=== PATIENT | female | born 1995 | race Caucasian/White ===

== ENCOUNTER 2020-08-18 07:58 | Outpatient (CLI) | payer OTHER, SELFPAY ==
--- NOTE | ~2020-08-18 | MR_ITS ---
EXAMINATION: MR brain/brain stem wo con DATE: 08/18/2020 09:[address] TRANSCRIBER INDICATION: Migraine headaches TECHNIQUE: Magnetic resonance imaging (MRI) of the brain and brainstem was performed without intraven ous contrast. Sequences included sagittal and axial T1-weighted SE, axial diffusion-weighted FS SE, a xial T2*-weighted GRE, axial T2-weighted FLAIR Propeller, and axial T2-weighted Propeller. Apparent d iffusion coefficient (ADC) maps were created. COMPARISON: MRI dated 02/12/2019 FINDINGS: The brain volume and ventricular system are within normal limits. The brain parenchymal si gnal intensity pattern and parry/white matter is normal and there is no evidence of hemorrhage, space occupying masses or infarctions. The flow signal voids of the major arterial structures about the [place] and within the gabbi r dural venous sinuses appear grossly unremarkable and patent. The seventh and eighth cranial nerve complexes are normal. The mid sagittal image demonstrates a normal craniovertebral junction and reno us callosum. The paranasal sinuses are grossly unremarkable. No abnormal contrast enhancement was appreciated. IMPRESSION: 1: Unremarkable MRI of the brain. Reviewed, dictated and finalized at location A. T TRANSCRIBER
== END 2020-08-18 07:59 | disposition home or self-care (01) ==
PROVIDERS: PCP Family Medicine
DX: G43.709 Chronic migraine without aura, not intractable, without status migrainosus (principal)
CPT/HCPCS: 70551

== ENCOUNTER 2021-05-02 08:34 | Outpatient (CLI) | payer OTHER, SELFPAY ==
[2021-05-02 09:38] LABS: SARS-CoV-2 RNA PCR Negative (Negative)
== END 2021-05-02 08:35 | disposition home or self-care (01) ==
LOC: CHSLAB 08:36
PROVIDERS: PCP Family Medicine; Visit Provider Family Medicine
DX: J02.9 Acute pharyngitis, unspecified (principal); Z20.822 Contact with and (suspected) exposure to COVID-19
CPT/HCPCS: C9803; U0003; U0005

== ENCOUNTER 2021-08-05 17:43 | Outpatient (CLI) | payer OTHER, SELFPAY ==
[2021-08-05 18:43] LABS: SARS-CoV-2 RNA PCR Negative (Negative)
== END 2021-08-05 17:44 | disposition home or self-care (01) ==
LOC: CHSLAB 17:45
PROVIDERS: PCP Family Medicine; Visit Provider Family Medicine
DX: Z20.822 Contact with and (suspected) exposure to COVID-19 (principal)
CPT/HCPCS: C9803; U0003; U0005

== ENCOUNTER 2021-10-12 11:19 | Outpatient (CLI) | payer OTHER, SELFPAY ==
[2021-10-12 12:05] LABS: Basophils Absolute Auto 0.03 K/mm3 (0.00-0.10); Basophils Percent Auto 0.4 % (0.0-1.0); Eosinophils Absolute Auto 0.07 K/mm3 (0.02-0.50); Eosinophils Percent Auto 0.9 % (1.0-6.0); Hematocrit 46.3 % (35.0-49.0); Hemoglobin 15.2 g/dL (12.0-15.0); Immature Granulocyte Absolute 0.02 K/mm3 (0.00-0.00); Immature Granulocyte Percent A 0.3 % (0.0-0.0); Lymphocytes Absolute Auto 2.25 K/mm3 (1.10-4.50); Lymphocytes Percent Auto 29.5 % (18.0-42.0); Mean Corpuscular HGB Conc 32.8 g/dL (32.0-36.0); Mean Corpuscular Hemoglobin 29.9 pg (27.0-31.0); Mean Corpuscular Volume 91.1 fL (78.0-102.0); Mean Platelet Volume 9.4 fl (9.2-11.8); Monocytes Absolute Auto 0.53 K/mm3 (0.10-0.90); Neutrophils Absolute Auto 4.7 K/mm3 (1.7-7.2); Neutrophils Percent Auto 61.9 % (50.0-70.0); Platelet Count Result 341 K/mm3 (150-420); Red Blood Count 5.08 M/mm3 (4.20-5.40); Red Cell Distribution Width 11.9 % (11.6-14.4); White Blood Count 7.6 K/mm3 (4.8-10.8)
[2021-10-12 12:23] LABS: Hemoglobin A1C 5.6 % (<5.7)
[2021-10-12 12:29] LABS: Alanine Aminotransferase 39 U/L (14-59); Albumin Level 4.2 g/dL (3.4-5.0); Alkaline Phosphatase 70 U/L (46-116); Anion Gap 11 mmol/L (8-16); Aspartate Amino Transferase 20 U/L (15-37); Bilirubin,Total 0.5 mg/dL (0.00-1.00); Blood Urea Nitrogen 20 mg/dL (7-18); Calcium 8.9 mg/dL (8.5-10.1); Carbon Dioxide 27 mmol/L (21-32); Chloride 102 mmol/L (98-108); Cholesterol 198 mg/dL (0-200); Estimated Glomerular Filt Rate > 60; Glucose 93 mg/dL (70-99); HDL Direct 42 mg/dL (40-60); LDL Cholesterol Calculated 137 mg/dL (<130); Osmolality Calculated 292 mOsm/kg (285-295); Sodium 140 mmol/L (136-145); Total Protein 7.2 g/dL (6.4-8.2); Triglycerides 97 mg/dL (0-150)
[2021-10-12 13:09] LABS: Erythrocyte Sedimentation Rate 10 mm/hr (0-15)
== END 2021-10-12 11:20 | disposition home or self-care (01) ==
LOC: CHSLAB 11:22
PROVIDERS: PCP Family Medicine; Visit Provider Family Medicine
DX: Z00.00 Encounter for general adult medical examination without abnormal findings (principal); G44.009 Cluster headache syndrome, unspecified, not intractable
CPT/HCPCS: 36415; 80053; 80061; 83036; 84443; 85025; 85652

== ENCOUNTER 2021-11-05 13:32 | Outpatient (CLI) | payer OTHER, SELFPAY ==
--- NOTE | ~2021-11-05 | US_ITS ---
EXAMINATION: US pelvic complete DATE: 11/05/2021 13:50 INDICATION: Verify IUD placement TECHNIQUE: Multiple transabdominal sonographic images of the pelvis were obtained. COMPARISON: None. FINDINGS: The uterus measures 7.1 x 2.8 x 4.4 cm. The endometrial complex measures 4 mm in thickness. The T-sh aped linear shadowing IUD is seen in expected position within the endometrial canal. The right ovary measures 2.0 x 1.1 x 1.9 cm. The left ovary measures 2.1 x 1.6 x 2.0 cm. There is normal vascular elyse w in the ovaries. There is no free fluid in the pelvis. IMPRESSION: 1. Normal pelvic ultrasound with IUD in expected position. Reviewed, dictated and finalized at location B.
== END 2021-11-05 13:33 | disposition home or self-care (01) ==
LOC: CHSIMG 13:33
PROVIDERS: PCP Family Medicine; Visit Provider Nurse Practitioner
DX: R10.2 Pelvic and perineal pain (principal)
CPT/HCPCS: 76856

== ENCOUNTER 2021-11-22 15:07 | Outpatient (CLI) | payer OTHER, SELFPAY ==
[2021-11-22 15:22] LABS: Basophils Absolute Auto 0.04 K/mm3 (0.00-0.10); Basophils Percent Auto 0.4 % (0.0-1.0); Eosinophils Absolute Auto 0.05 K/mm3 (0.02-0.50); Eosinophils Percent Auto 0.5 % (1.0-6.0); Hematocrit 43.5 % (35.0-49.0); Hemoglobin 14.3 g/dL (12.0-15.0); Immature Granulocyte Absolute 0.04 K/mm3 (0.00-0.00); Immature Granulocyte Percent A 0.4 % (0.0-0.0); Lymphocytes Absolute Auto 2.38 K/mm3 (1.10-4.50); Lymphocytes Percent Auto 24.2 % (18.0-42.0); Mean Corpuscular HGB Conc 32.9 g/dL (32.0-36.0); Mean Corpuscular Hemoglobin 29.7 pg (27.0-31.0); Mean Corpuscular Volume 90.4 fL (78.0-102.0); Mean Platelet Volume 9.4 fl (9.2-11.8); Monocytes Absolute Auto 0.66 K/mm3 (0.10-0.90); Monocytes Percent Auto 6.7 % (2.0-11.0); Neutrophils Absolute Auto 6.7 K/mm3 (1.7-7.2); Neutrophils Percent Auto 67.8 % (50.0-70.0); Platelet Count Result 362 K/mm3 (150-420); Red Blood Count 4.81 M/mm3 (4.20-5.40); Red Cell Distribution Width 11.9 % (11.6-14.4); White Blood Count 9.8 K/mm3 (4.8-10.8)
[2021-11-22 15:57] LABS: Alanine Aminotransferase 32 U/L (14-59); Albumin Level 4.2 g/dL (3.4-5.0); Alkaline Phosphatase 74 U/L (46-116); Anion Gap 6 mmol/L (8-16); Aspartate Amino Transferase 17 U/L (15-37); Bilirubin,Total 0.3 mg/dL (0.00-1.00); Blood Urea Nitrogen 14 mg/dL (7-18); Calcium 9.1 mg/dL (8.5-10.1); Carbon Dioxide 29 mmol/L (21-32); Chloride 105 mmol/L (98-108); Estimated Glomerular Filt Rate > 60; Glucose 95 mg/dL (70-99); Iron 75 ug/dL (50-170); Osmolality Calculated 290 mOsm/kg (285-295); Percent Iron Saturation 25 % (12-57); Potassium 3.8 mmol/L (3.5-5.1); Sodium 140 mmol/L (136-145); Total Protein 7.1 g/dL (6.4-8.2)
== END 2021-11-22 15:08 | disposition home or self-care (01) ==
LOC: CHSLAB 15:10
PROVIDERS: PCP Family Medicine; Visit Provider Nurse Practitioner Gerontology
DX: R71.8 Other abnormality of red blood cells (principal); R79.9 Abnormal finding of blood chemistry, unspecified
CPT/HCPCS: 36415; 80053; 83540; 83550; 85025

== ENCOUNTER 2021-11-24 08:28 | Emergency (ER) | payer OTHER, SELFPAY ==
[2021-11-24 08:40] VITALS: BP 112/75; PULSE 86; RESP 16; TEMP 36.9; O2SAT 99
--- NOTE | 2021-11-24 08:45 | ED.EAR ---
HPI - Ear Problem General Chief complaint: Ear Stated complaint: Ear Problem Time Seen by Provider: 11/24/21 08:45 Source: patient and RN notes reviewed Mode of arrival: ambulatory Limitations: no limitations History of Present Illness HPI Narrative: 26-year-old female presents to concern for earwax impaction. Reports she thinks she pushed wax too far to air when she was cleaning her ear out. She reports erythema in both ear canals. She denies pain, drainage, decreased hearing. MD Complaint: other (Earwax impaction) Related Data Home Medications Medication Instructions Recorded Confirmed levonorgestrel 20 mcg/24 hours (7 1 device INTRAUTERINE ONCE 10/11/21 11/24/21 yrs) 52 mg intrauterine device Allergies Allergy/AdvReac Type Severity Reaction Status Date / Time amoxicillin Allergy Intermediate rash Verified 11/24/21 08:44 Sulfonamides Allergy Intermediate rash Uncoded 11/24/21 08:44 Review of Systems Review of Systems: CONSTITUTIONAL: Denies malaise, chills, sweats, or fever. EYES: Denies visual changes, redness, or discharge. ENT: Denies rhinorrhea, congestion, sinus pain, and sore throat. Reports excess earwax in the right ear CARDIOVASCULAR: Denies chest pain, palpitations, or edema. RESPIRATORY: Denies cough. Denies dyspnea. GASTROINTESTINAL: Denies abdominal pain, nausea, vomiting, diarrhea SKIN: Denies rash or itching. MUSCULOSKELETAL: Denies myalgia. NEUROLOGIC: Denies headache. All systems reviewed & are unremarkable except as noted in HPI and below PMFSH Past Medical History Medical History Chronic migraine Surgical History Surgical History [place] teeth extracted Family History Family History Father Hypertension Hyperlipidemia Grandparent Cancer Grandparent Diabetes mellitus Social History Social History Social History: Single Smoking status: Never smoker Second hand tobacco smoke exposure: No Alcohol intake: current Drinks per week: 2 Substance use: never Substance use type: does not use Gender identity (if verbalized by the patient): Female Comments At time of signature, agree with nursing past medical, surgical, social and family history. There is no relevant family history pertinent to the presenting complaint Exam Narrative: GENERAL: Well-appearing, well-nourished, and in no acute distress. HEAD: Normocephalic EYES: PERRLA, conjunctivae clear ENT: Nares clear. Mucous membranes moist. Left TM pearly parry with sharp light reflex, right TM not visible due to cerumen impaction; no tragal tenderness, EAC unremarkable bilaterally. Oropharynx not erythematous without lesions. Tonsils not enlarged and without exudate, no drooling, no hoarseness, no trismus, uvula midline. NECK: Supple. No lymphadenopathy CHEST: Clear to auscultation, breath sounds equal. No wheezing, rhonchi, rales, or stridor. No respiratory distress, speaks in full sentences. HEART: Regular rate and rhythm. No murmur heard. SKIN: Warm, dry, no rash. NEURO: Alert and oriented x3. PSYCH: Normal mood and affect Course Course Emergency Course: Patient is aware of diagnosis, understands and agrees to treatment plan. Anticipatory guidance given. Patient agrees to follow-up as directed and is aware of reasons to seek care at the emergency department. Portions of this record may have been created with voice recognition software Level of Care: Express Care Visit Vital Signs Vital signs: Vital Signs Temperature 98.5 F 11/24/21 08:40 Pulse Rate 86 11/24/21 08:40 Respiratory Rate 16 11/24/21 08:40 Blood Pressure 112/75 11/24/21 08:40 Pulse Oximetry 99 11/24/21 08:40 Temperature 98.5 F 11/24/21 08:40 Pulse Rate 86 11/24/21 08:40
== END 2021-11-24 09:15 | disposition home or self-care (01) ==
PROVIDERS: Emergency Provider Nurse Practitioner; PCP Family Medicine
DX: H61.21 Impacted cerumen, right ear (principal)
CPT/HCPCS: 69209; 99212; G0463

== ENCOUNTER 2022-01-23 14:14 | Outpatient (CLI) | payer OTHER, SELFPAY ==
--- NOTE | ~2022-01-23 | XR_ITS ---
EXAMINATION: XR abdomen obstructive series DATE: 01/23/2022 14:55 INDICATION: Abdominal distention, right lower quadrant pain TECHNIQUE: Upright and supine views of the abdomen were obtained. COMPARISON: None. FINDINGS: The bowel gas pattern is normal. There are no dilated loops of bowel. No free intraperitone al gas is identified. An IUD is noted. The visualized osseous structures are unremarkable. IMPRESSION: 1. Nonobstructive bowel gas pattern. Reviewed, dictated and finalized at location F.
== END 2022-01-23 14:15 | disposition home or self-care (01) ==
LOC: CHSIMG 14:17
PROVIDERS: PCP Family Medicine; Visit Provider Family Medicine
DX: R14.0 Abdominal distension (gaseous) (principal); E04.9 Nontoxic goiter, unspecified
CPT/HCPCS: 74019

== ENCOUNTER 2022-01-29 13:45 | Outpatient (CLI) | payer OTHER, SELFPAY ==
--- NOTE | ~2022-01-29 | US_ITS ---
EXAMINATION: US thyroid DATE: 01/29/2022 14:06 INDICATION: Enlarged thyroid TECHNIQUE: Multiple ultrasound images of the thyroid were obtained. COMPARISON: None. FINDINGS: The right thyroid lobe measures 1.2 x 4.9 x 1.4 cm. The left thyroid lobe measures 1.0 x 4.4 x 1.3 c m. The thyroid isthmus measures 0.2 cm.There is normal echotexture and echogenicity throughout the th yroid gland. No discrete nodules identified. Normal vascular flow is present. IMPRESSION: 1. Normal thyroid ultrasound findings. Reviewed, dictated and finalized at location K.
== END 2022-01-29 13:46 | disposition home or self-care (01) ==
LOC: CHSIMG 13:47
PROVIDERS: PCP Family Medicine; Visit Provider Family Medicine
DX: E04.9 Nontoxic goiter, unspecified (principal)
CPT/HCPCS: 76536

== ENCOUNTER 2023-05-12 16:06 | Outpatient (CLI) | payer BC, SELFPAY ==
[2023-05-12 16:25] LABS: Basophils Percent Auto 0.5 % (0.0-1.0); Eosinophils Absolute Auto 0.06 K/mm3 (0.02-0.50); Eosinophils Percent Auto 0.6 % (1.0-6.0); Hematocrit 41.8 % (35.0-49.0); Hemoglobin 14.1 g/dL (12.0-15.0); Immature Granulocyte Absolute 0.02 K/mm3 (0.00-0.00); Immature Granulocyte Percent A 0.2 % (0.0-0.0); Lymphocytes Percent Auto 25.6 % (18.0-42.0); Mean Corpuscular HGB Conc 33.7 g/dL (32.0-36.0); Mean Corpuscular Hemoglobin 30.3 pg (27.0-31.0); Mean Corpuscular Volume 89.9 fL (78.0-102.0); Mean Platelet Volume 9.1 fl (9.2-11.8); Monocytes Percent Auto 6.4 % (2.0-11.0); Neutrophils Absolute Auto 6.2 K/mm3 (1.7-7.2); Neutrophils Percent Auto 66.7 % (50.0-70.0); Platelet Count Result 381 K/mm3 (150-420); Red Blood Count 4.65 M/mm3 (4.20-5.40); Red Cell Distribution Width 12.2 % (11.6-14.4); White Blood Count 9.4 K/mm3 (4.8-10.8)
[2023-05-12 16:26] LABS: Basophils Absolute Auto 0.05 K/mm3 (0.00-0.10)
[2023-05-12 16:48] LABS: Alanine Aminotransferase 40 U/L (14-59); Albumin Level 3.9 g/dL (3.4-5.0); Alkaline Phosphatase 78 U/L (46-116); Anion Gap 10 mmol/L (8-16); Aspartate Amino Transferase 17 U/L (15-37); Bilirubin,Total 0.3 mg/dL (0.00-1.00); Blood Urea Nitrogen 16 mg/dL (7-18); Calcium 9.2 mg/dL (8.5-10.1); Carbon Dioxide 28 mmol/L (21-32); Chloride 102 mmol/L (98-108); Estimated Glomerular Filt Rate > 60; Glucose 94 mg/dL (70-99); Osmolality Calculated 291 mOsm/kg (285-295); Sodium 140 mmol/L (136-145); Total Protein 6.8 g/dL (6.4-8.2)
== END 2023-05-12 16:07 | disposition home or self-care (01) ==
LOC: CHSLAB 16:08
PROVIDERS: PCP Family Medicine; Visit Provider Physician Assistant
DX: R00.2 Palpitations (principal); R42 Dizziness and giddiness
CPT/HCPCS: 36415; 80053; 84443; 85025

== ENCOUNTER 2025-01-09 08:39 | Emergency (ER) | payer OTHER, BC, SELFPAY ==
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
[2025-01-09 08:43] VITALS: BP 138/77; PULSE 98; RESP 16; O2SAT 100
--- OUTSIDE RECORDS SUMMARY | 2025-01-09 08:58 | XMS_ITS | Clinical Summary ---
Author Organization [facility] Address [address] [place] [address] Phone Care Team Providers Care Food Supervisor Name Role Phone Alley Pickard MD Primary Care Provider [phone] Allergies Active Allergy Reactions Criticality Noted Date Comments Amoxicillin Rash 08/12/2006 Sulfa Antibiotics Rash 07/25/2024 Medications Aimovig 70 MG/ML Solution Auto-injector ADMINISTER 1ML IN THE MUSCLE MONTHLY Active Active Problems No known active problems Social History Tobacco Use Types Packs/Day Years Used Date Smoking Tobacco: Never Smokeless Tobacco: Never Comments No Sex and Gender Information Value Date Recorded Sex Assigned at Not on file Legal Sex Female 10:39 PM CDT Gender Identity Not on file Sexual Orientation Not on file Last Filed Vital Signs Vital Sign Reading Time Taken Comments Blood Pressure 120/68 07/25/2024 5:26 PM ROUND KILN DRAWER Pulse 116 07/25/2024 5:26 PM ROUND KILN DRAWER Temperature 36.6 C (97.8 F) 07/25/2024 5:26 PM ROUND KILN DRAWER Respiratory Rate 24 07/25/2024 5:26 PM ROUND KILN DRAWER Oxygen Saturation 96% 07/25/2024 5:26 PM ROUND KILN DRAWER Inhaled Oxygen Concentration - - Weight - - Height - - Body Mass Index - - Plan of Treatment Health Maintenance Due Date Last Done Comments Hepatitis C Virus (HCV) Screening 1995 Hepatitis B Immunization (1 of 3 - 19+ 3-dose series) 2014 Pap Smear 2016 SARS-COV-2 Immunization ( season) 2024 06/14/2021, 08/27/2020, 07/30/2020 Influenza Immunization (Seas on Ended) 2025 Respiratory Syncytial Virus (RSV) Immunization (Adult) (1 - 1-dose 75+ series) 2070 TdaP Immunization Completed 10/07/2017 Human Papillomavirus (HPV) Immunization Aged Out No longer eligible b ased on patient's age to complete this topic Meningococcal Immunization (ACWY) Aged Out No longer eligible b ased on patient's age to complete this topic Pneumococcal Immunization Combined Aged Out No longer eligible b ased on patient's age to complete this topic Rotavirus Immunization Aged Out No lo nger eligible based on patient's age to complete this topic Insurance [facility] Member Subscriber Plan / Payer (Ef fective 2023-Present) Name:Anna Ortega Member ID:[id number] Relation to Subscriber:Self Name:Anna Ortega Subscriber ID:[id number] Payer ID:[id number] Type:Not on file Address: [facility] [address] [place] [address] Care Teams Food Supervisor Relationship Specialty Start Date End Date Alley Pickard MD [address] [facility] [address] [place] [address] PCP - General Family Medicine 07/25/24
--- OUTSIDE RECORDS SUMMARY | 2025-01-09 08:59 | XMS_ITS | Data Portability ---
Author Organization [facility], [address] [facility] [facility] Address [address] [place] [address] Care Team Providers Care Electronics Engineering Technologist Name Role Phone ABHILASH BLANK Primary Care Provider Assessment Encounter Date Assessment Date Assessment LastModified by Organization Details LastModified Time 2024 2024 Anna's migraines have worsened. She is having a daily migraine. Different treatment options were discussed with her. We will try stopping the Emgality and switching her to Aimovig. She can continue the Nurtec as needed. All questions and concerns were answered. Follow-up in 3 months, sooner if needed. She verbalized understanding and agreement with the treatment plan. [email or web address] Not available 2024 12:45:09 Plan of Treatment Reminders Order Date Submit Date Provider Last Modified By Organization Details Last Modified Time Details Appointments None recorded. Lab None recorded. Referral None recorded. Procedures None recorded. Surgeries None recorded. Imaging None recorded. Medication Orders Aimovig Autoinjecto r 70 mg/mL subcutaneou s auto-inject or 2023 [facility] #[id number], [address] [place] [address], [phone], 11:41:37 Nurtec ODT 75 mg disintegrat ing tablet 2023 [facility] #[id number], [address] [place] [address], [phone], 11:41:37 Patient TargetsNo targets recorded. Patient InstructionsNo instructions recorded. Reason for Referral None Reported. Problems Name Problem SNOMED Code Status Onset Date Resolution Date Notes Provider Name and Address Organization Details Recorded Time Migraine without aura, not refractory 540381800 Active 024 Josette Cruz Pelc, SPACE SYSTEMS OPERATIONS MANAGER, MARKETING RESEARCHER [address] [place] [address], [phone] [facility] 4 11:40:09 Problem Notes None recorded. Procedures Surgical History Date Name Laterality Status Provider Name and Address Organization Details Recorded Time Create eardrum opening completed Not Available Health Note 06/09/2024 14:46:05 Imaging Results None recorded. Procedure Notes None recorded. Medical Equipment None Reported. Allergies Allergen ID Allergen Name Allergen Category Reaction Reaction Severity Criticality Documentation Date Start Date Code Code System Note Provider Name and Address Organization Details Recorded Time 669537 amoxicill in trihydrat e medicatio n rash Not available Not available 08/31/20232006 88782 8 RxNorm React ion: Rash; Not Available [facility] 4 23:36:14 [id number] Substance with sulfonami de structure and antibacte rial mechanism of action (substanc e) medicatio n rash Not available Not available 08/31/20232012 53662 8003 SNOMED React ion: Rash; Not Available [facility] 4 23:36:14 Medications Name Sig Start Date Stop Date Status Note LastModified by Organization Details LastModified Time Aimovig Autoinjecto r 70 mg/mL subcutaneou s auto-inject or INJECT 1ML UNDER THE SKIN ONCE MONTHLY 2024 active Not Available Not Available Not Avai lable Emgality Pen 120 mg/mL subcutaneou s pen injector ADMINISTE R 1 ML UNDER THE SKIN MONTHLY 06/16 completed Not Available Not Available Not Available Nurtec ODT 75 mg disintegrat ing tablet active Not Available Not Available N ot Available Vitals Date Recorded Heart rate Oxygen saturation Oxygen saturation in Arterial blood by Pulse oximetry Body weight Systolic blood pressure Diastolic blood pressure Provider Name and Address Organization Details Last Updated DateTime 4 125 /min 97 % 97 % 062638. 59 g 124 mm[Hg] 80 mm[Hg] Johnny Sosa [facility] 11:27:52 Social History Question Answer Notes LastModified by Organizat ion Details LastModified Time Tobacco Smoking Status Former Smoker Not Available Health Note 06/09/2024 14:46:06 Do You Have An Advance Directive? No [email or web address] Information not available 06/09/2024 What Is Your Level Of Caffeine Consumption? Moderate [email or web address] Information not available 06/09/2024 How Many Times Per Week Do You Exercise? 5-7 Times Per Week [email or web address] Information not available 06/09/2024 When Did You Quit Smoking? 5+ Yrs Ago [email or web address] Information not available 06/09/2024 What Was The Date Of Your Most Recent Tobacco Screening? 2024 [email or web address] Information not available 06/09/2024 What Is Your Relationship Status? Single [email or web address] Information not available 06/09/2024 Sex: Unknown Functional Status Question Answer Note LastModified by Organizat ion Details LastModified Time How many times per week do you consume alcohol? Less than 1 time per week [email or web address] Information not available 06/09/2024 Do you use any illicit or recreational drugs? No [email or web address] Information not available 06/09/2024 What is your level of alcohol consumption? Occasional [email or web address] Information not available 06/09/2024 Are you currently employed? 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 Moderate [email or web address] Information not available 06/09/2024 Mental Status None recorded. Family History Relationship Description Onset Age of this Age Resolved Age Notes LastModified by Organization Details LastModified Time Maternal Grandfather Family history of malignant neoplasm [email or web address] Not available 2023 14:46:04 Maternal Grandfather Diabetes mellitus [email or web address] Not available 2023 14:46:04 Paternal Grandfather Family history of malignant neoplasm [email or web address] Not available 2023 14:46:04 Paternal Grandmother Diabetes mellitus [email or web address] Not available 2023 14:46:04 Father Hypertensive disorder [email or web address] Not available 2023 14:46:04 Father Demarco horton [email or web address] Not available 2023 14:46:04 Medical History Condition Response Diabetes N Anxiety Disorder N Bleeding Disorder N Attention-deficit Hyperactivity Disorder N High Blood Pressure N Arthritis N Hyperlipidemia N Cancer N Stroke N Thyroid Problems N Asthma N Depression N COPD N Anemia N Seizures N Heart Disease N Fibromyalgia N Osteoporosis N Kidney Disease N Gynecological HistoryNo gynecological history recorded. Obstetrics History GPAL:G 0 P 0 0 0 0 Past Encounters Encounter ID Performer Location Encounter Start Date Encounter Closed Date Diagnosis/Indication Diagnosis SNOMED-CT Code Diagnosis ICD10 Code Diagnosis Note [id number] Josette Williamc, SPACE SYSTEMS OPERATIONS MANAGER, MARKETING RESEARCHER [address] [facility] [address] [place] [address] 2024 10:48:28 2024 11:45:46 Migraine without aura, not refractory 948188362 G43.709 Health Concerns Section Related Observation LastModified by Organization Detai ls LastModified Time None Recorded Concern Status LastModified by Organization Details LastModified Time None Recorded Advance Directives Directive N: Payers Insurance Date Sequence Insurance Name Policy Number Policy Tyson Covered Member ID Tyson Member ID Guarantor Name 2024 1 [employer] (PPO) [id number] Anna Ortega [id number] Anna Ortega 2024 1 [facility] (O) [id number] 1 Anna Ortega [id number] Anna Ortega Notes Date Note Type Note Provider Name and Address Organization Details Recorded Time 2024 text/html Anna is here today for follow-up. She has a history of migraine headaches and is currently on Emgality injections once a month as well as Nurtec as needed. She denies side effects to her medications.She states that the Emgality was working quite well for her up until just a few months ago. For the last 4 months she has been having almost daily migraines. She reports a throbbing pain across her forehead and behind her eyes. She reports minimal nausea but typically no vomiting. She is photophobic and photophobic. When she gets a migraine she will take Nurtec which is usually quite helpful at taking the edge off the pain.In addition to the Emgality, in the past she has tried amitriptyline, topiramate, propranolol, citalopram. She is tried rizatriptan and sumatriptan and Ubrelvy. Josette Gaming, SPACE SYSTEMS OPERATIONS MANAGER, MARKETING RESEARCHER [address] [place] [address], [phone], [facility] 2024 12:45:30 OBGyn Episode No OBEpisode recorded.
--- OUTSIDE RECORDS SUMMARY | 2025-01-09 08:59 | XMS_ITS | Data Portability ---
Author Organization [facility] Address [address] [place] [address] Care Team Providers Care Community Health Educator Name Role Phone THADDEUSCALINRAMILA ApodacaI Warp Clamper Assessment No assessment recorded. Plan of Treatment Reminders Order Date Submit Date Provider Last Modified By Organization Details Last Modified Time Details Appointments None recorded. Lab HSV (1+2) DNA, qual, PCR, unspecifie d specimen 2017 018 [facility], [address], [place], [address], 8 16:16:42 bacterial vaginosis + vaginitis panel, vaginal 2017 018 [facility], [address], [place], [address], 8 16:16:41 pap, IG + HPV, cervical 2017 018 [facility], [address], [place], [address], 8 11:35:57 urinalysis , dipstick 2017 018 [email or web address] In-Office Order, Internal Use Only DO Not Attach Compendium DO Not Attach Compendium, Do Not Delete/merge, [id number] 8 17:32:24 test, urine 2017 018 [email or web address] In-Office Order, Internal Use Only DO Not Attach Compendium DO Not Attach Compendium, Do Not Delete/merge, [id number] 8 17:32:24 test, urine 2015 016 [email or web address] In-Office Order, Internal Use Only DO Not Attach Compendium DO Not Attach Compendium, Do Not Delete/merge, [id number] 6 17:01:17 urinalysis , dipstick 2015 016 [email or web address] In-Office Order, Internal Use Only DO Not Attach Compendium DO Not Attach Compendium, Do Not Delete/merge, [id number] 6 17:01:17 test, urine 2015 016 [email or web address] In-Office Order, Internal Use Only DO Not Attach Compendium DO Not Attach Compendium, Do Not Delete/merge, [id number] 6 11:29:59 urinalysis , dipstick 2015 016 [email or web address] In-Office Order, Internal Use Only DO Not Attach Compendium DO Not Attach Compendium, Do Not Delete/merge, [id number] 6 16:58:47 test, urine 2015 016 [email or web address] In-Office Order, Internal Use Only DO Not Attach Compendium DO Not Attach Compendium, Do Not Delete/merge, [id number] 6 16:58:47 bacterial vaginosis + vaginitis panel, vaginal 2015 016 [facility], [address] [place] [address], [address], [place], [address], 6 16:17:20 HSV (1+2) DNA, qual, PCR, unspecifie d specimen 2015 016 [facility], [address] [facility], [address], [place], [address], 6 16:17:20 Referral None recorded. Procedures None recorded. Surgeries None recorded. Imaging None recorded. Medication Orders Vitamin tablet 2017 018 [email or web address] [facility], [address] [place] [address], [address], 8 17:40:09 Mirena 21 mcg/24 hr (up to 8 years) 52 mg intrauteri ne device 2015 016 [email or web address] Not available 8 17:04:09 Mirena 21 mcg/24 hr (up to 8 years) 52 mg intrauteri ne device 2015 016 [email or web address] [facility], [address] [place] [address], [address], 8 17:03:52 Patient TargetsNo targets recorded. Patient Instructions Encounter Date Encounter Id Patient Instructions Last Modified By Organization Details Last Modified Time 10/30/2017 When You Want to Lose Weight: Care Instructions [email or web address] Not available 10/30/2017 17:27:58 Well Visit, Ages 18 to 65: Care Instructions [email or web address] Not available 10/30/2017 17:27:25 Reason for Referral None Reported. Results Created Date Observation Date Name Description Value Unit Range Abnormal Flag Note LastModifiedBy Organization Detail LastModifiedTime 10/31/19 18 10/30/2017 pregn sugey test, urine HCG negati ve Not Available In-Office Order Internal Use Only DO Not Attach Compendium DO Not Attach Compendium, Do Not Delete/merge, [id number] 10/30/2017 17:06:43 10/31/19 18 10/30/2017 urina lysis , dipst ick Leukocytes Trace Not Available In-Offi ce Order Internal Use Only DO Not Attach Compendium DO Not Attach Compendium, Do Not Delete/merge, [id number] 10/30/2017 17:06:42 10/31/19 18 10/30/2017 urina lysis , dipst ick Nitrite negati ve Not Available In-Office Order Internal Use Only DO Not Attach Compendium DO Not Attach Compendium, Do Not Delete/merge, [id number] 10/30/2017 17:06:42 10/31/19 18 10/30/2017 urina lysis , dipst ick Urobilinogen 1 Not Available In-Of fice Order Internal Use Only DO Not Attach Compendium DO Not Attach Compendium, Do Not Delete/merge, 10/30/2017 17:06:42 10/31/19 18 10/30/2017 urina lysis , dipst ick Protein Negati ve Not Available In-Office Order Internal Use Only DO Not Attach Compendium DO Not Attach Compendium, Do Not Delete/merge, 10/30/2017 17:06:42 10/31/19 18 10/30/2017 urina lysis , dipst ick pH 8.0 Not Available In-Office Order Internal Use Only DO Not Attach Compendium DO Not Attach Compendium, Do Not Delete/merge, 10/30/2017 17:06:42 10/31/19 18 10/30/2017 urina lysis , dipst ick Blood Non-He molyze d: Trace Not Available In-Office Order Internal Use Only DO Not Attach Compendium DO Not Attach Compendium, Do Not Delete/merge, 10/30/2017 17:06:42 10/31/19 18 10/30/2017 urina lysis , dipst ick Specific Walcott 1.015 Not Available In-Off ice Order Internal Use Only DO Not Attach Compendium DO Not Attach Compendium, Do Not Delete/merge, 10/30/2017 17:06:42 10/31/19 18 10/30/2017 urina lysis , dipst ick Ketone Negati ve Not Available In-Office Order Internal Use Only DO Not Attach Compendium DO Not Attach Compendium, Do Not Delete/merge, 10/30/2017 17:06:42 10/31/19 18 10/30/2017 urina lysis , dipst ick Bilirubin Negati ve Not Available In-Office Order Internal Use Only DO Not Attach Compendium DO Not Attach Compendium, Do Not Delete/merge, 10/30/2017 17:06:42 10/31/19 18 10/30/2017 urina lysis , dipst ick Glucose Negati ve Not Available In-Office Order Internal Use Only DO Not Attach Compendium DO Not Attach Compendium, Do Not Delete/merge, [id number] 10/30/2017 17:06:42 04/14/20 16 04/14/2016 urina lysis , dipst ick Leukocytes Negati ve Not Available In-Office Order Internal Use Only DO Not Attach Compendium DO Not Attach Compendium, Do Not Delete/merge, 04/14/2016 16:37:22 04/14/20 16 04/14/2016 urina lysis , dipst ick Nitrite negati ve Not Available In-Office Order Internal Use Only DO Not Attach Compendium DO Not Attach Compendium, Do Not Delete/merge, 04/14/2016 16:37:22 04/14/20 16 04/14/2016 urina lysis , dipst ick Urobilinogen 1 Not Available In-Of fice Order Internal Use Only DO Not Attach Compendium DO Not Attach Compendium, Do Not Delete/merge, 04/14/2016 16:37:22 04/14/2004/14/2016 urina lysis , dipst ick Protein Negati ve Not Available In-Office Order Internal Use Only DO Not Attach Compendium DO Not Attach Compendium, Do Not Delete/merge, 04/14/2016 16:37:22 04/14/2004/14/2016 urina lysis , dipst ick pH 5.5 Not Available In-Office Order Internal Use Only DO Not Attach Compendium DO Not Attach Compendium, Do Not Delete/merge, 04/14/2016 16:37:22 04/14/2004/14/2016 urina lysis , dipst ick Blood Modera te Not Available In-Office Order Internal Use Only DO Not Attach Compendium DO Not Attach Compendium, Do Not Delete/merge, 04/14/2016 16:37:22 04/14/2004/14/2016 urina lysis , dipst ick Specific Walcott 1.030 Not Available In-Off ice Order Internal Use Only DO Not Attach Compendium DO Not Attach Compendium, Do Not Delete/merge, 04/14/2016 16:37:22 04/14/2004/14/2016 urina lysis , dipst ick Ketone Negati ve Not Available In-Office Order Internal Use Only DO Not Attach Compendium DO Not Attach Compendium, Do Not Delete/merge, [id number] 04/14/2016 16:37:22 04/14/20 16 04/14/2016 urina lysis , dipst ick Bilirubin Negati ve Not Available In-Office Order Internal Use Only DO Not Attach Compendium DO Not Attach Compendium, Do Not Delete/merge, [id number] 04/14/2016 16:37:22 04/14/20 16 04/14/2016 urina lysis , dipst ick Glucose Negati ve Not Available In-Office Order Internal Use Only DO Not Attach Compendium DO Not Attach Compendium, Do Not Delete/merge, 04/14/2016 16:37:22 04/14/20 16 04/14/2016 pregn sugey test, urine HCG negati ve Not Available In-Office Order Internal Use Only DO Not Attach Compendium DO Not Attach Compendium, Do Not Delete/merge, 04/14/2016 16:37:21 03/18/20 16 03/18/2016 pregn sugey test, urine HCG negati ve Not Available In-Office Order Internal Use Only DO Not Attach Compendium DO Not Attach Compendium, Do Not Delete/merge, 03/18/2016 15:08:57 01/18/20 16 01/18/2016 pregn sugey test, urine HCG negati ve Not Available In-Office Order Internal Use Only DO Not Attach Compendium DO Not Attach Compendium, Do Not Delete/merge, 01/18/2016 14:55:11 01/18/20 16 01/18/2016 urina lysis , dipst ick Leukocytes Negati ve Not Available In-Office Order Internal Use Only DO Not Attach Compendium DO Not Attach Compendium, Do Not Delete/merge, 01/18/2016 14:55:11 01/18/20 16 01/18/2016 urina lysis , dipst ick Nitrite negati ve Not Available In-Office Order Internal Use Only DO Not Attach Compendium DO Not Attach Compendium, Do Not Delete/merge, [id number] 01/18/2016 14:55:11 01/18/20 16 01/18/2016 urina lysis , dipst ick Urobilinogen .2 Not Available In-Of fice Order Internal Use Only DO Not Attach Compendium DO Not Attach Compendium, Do Not Delete/merge, 01/18/2016 14:55:01/18/20 16 01/18/2016 urina lysis , dipst ick Protein Trace Not Available In-Office Order Internal Use Only DO Not Attach Compendium DO Not Attach Compendium, Do Not Delete/merge, 01/18/2016 14:55:01/18/20 16 01/18/2016 urina lysis , dipst ick pH 7.0 Not Available In-Office Order Internal Use Only DO Not Attach Compendium DO Not Attach Compendium, Do Not Delete/merge, 01/18/2016 14:55:01/18/20 16 01/18/2016 urina lysis , dipst ick Blood Negati ve Not Available In-Office Order Internal Use Only DO Not Attach Compendium DO Not Attach Compendium, Do Not Delete/merge, 01/18/2016 14:55:01/18/20 16 01/18/2016 urina lysis , dipst ick Specific Walcott 1.025 Not Available In-Off ice Order Internal Use Only DO Not Attach Compendium DO Not Attach Compendium, Do Not Delete/merge, 01/18/2016 14:55:01/18/20 16 01/18/2016 urina lysis , dipst ick Ketone Negati ve Not Available In-Office Order Internal Use Only DO Not Attach Compendium DO Not Attach Compendium, Do Not Delete/merge, 01/18/2016 14:55:01/18/20 16 01/18/2016 urina lysis , dipst ick Bilirubin Negati ve Not Available In-Office Order Internal Use Only DO Not Attach Compendium DO Not Attach Compendium, Do Not Delete/merge, 01/18/2016 14:55:01/18/2001/18/2016 urina lysis , dipst ick Glucose Negati ve Not Available In-Office Order Internal Use Only DO Not Attach Compendium DO Not Attach Compendium, Do Not Delete/merge, 01/18/2016 14:55:01/18/2001/20/2016 bacte rial vagin osis + vagin itis panel , vagin al trich vag by MANNY NEGATI VE negati ve Not Available [facility] ([facility]) [address] [place], [address], 01/22/2016 16:17:19 01/18/20 16 01/20/2016 bacte rial vagin osis + vagin itis panel , vagin al chlamydia trachomatis, MANNY NEGATI VE negati ve Not Available [facility] ([facility]) [address] [place], [address], 01/22/2016 16:17:19 01/18/20 16 01/20/2016 bacte rial vagin osis + vagin itis panel , vagin al neisseria gonorrhoeae, MANNY NEGATI VE negati ve Not Available [facility] ([facility]) [address] [place], [address], 01/22/2016 16:17:19 01/18/20 16 01/22/2016 bacte rial vagin osis + vagin itis panel , vagin al atopobium vaginae LOW - 0 score Not Available [facility] ([facility]) [address] [place], [address], 01/22/2016 16:17:19 01/18/20 16 01/22/2016 bacte rial vagin osis + vagin itis panel , vagin al bvab 2 LOW - 0 score Not Available [facility] ([facility]) [address] [place], [address], 01/22/2016 16:17:19 01/18/20 16 01/22/2016 bacte rial vagin osis + vagin itis panel , vagin al megasphaera 1 LOW - 0 score CALCU LATE TOTAL SCORE BY VANIA Whitman THE 3 INDIV IDUAL BACTE RIAL VAGIN OSIS (BV) MARKE R SCORE S TOGET HER. TOTAL SCORE IS INTER PRETE D FOLLO WS: TOTAL SCORE 0-1: INDIC ATES THE ABSEN CE OF BV. TOTAL SCORE 2: INDET ERMIN ATE FOR BV. ADDIT IONAL CLINI GRACE DATA SHOUL D BE EVALU ATED TO ESTAB ONEL A DIAGN OSIS. TOTAL SCORE 3-6: INDIC ATES THE PRESE NCE OF BV. THIS TEST WAS DEVEL OPED AND ITS PERFO RMANC E NOMAN CTERI STICS DETER MINED BY [employer] [facility]. IT HAS NOT BEEN CLEAR ED OR APPRO CARLOS ENRIQUE BY THE FOOD AND DRUG ADMIN ISTRA TION. THE FDA HAS DETER MINED THAT SUCH CLEAR ANCE OR APPRO SILKE IS NOT NECES DEEPA. Not Available [facility] ([facility]) [address] [place], [address], 01/22/2016 16:17:19 01/18/20 16 01/22/2016 bacte rial vagin osis + vagin itis panel , vagin al grayson albicans, MANNY NEGATI VE negati ve Not Available [facility] ([facility]) [address] [place], [address], 01/22/2016 16:17:19 01/18/20 16 01/22/2016 bacte rial vagin osis + vagin itis panel , vagin al grayson glabrata, MANNY NEGATI VE negati ve THIS TEST WAS DEVEL OPED AND ITS PERFO RMANC E NOMAN CTERI STICS DETER MINED BY [facility]. IT HAS NOT BEEN CLEAR ED OR APPRO CARLOS ENRIQUE BY THE FOOD AND DRUG ADMIN ISTRA TION. THE FDA HAS DETER MINED THAT SUCH CLEAR ANCE OR APPRO SILKE IS NOT NECES DEEPA. Not Available [facility] ([facility]) [address] [place], [address], 01/22/2016 16:17:19 01/18/20 16 01/22/2016 HSV (1+2) DNA, qual, PCR, unspe cifie d speci men hsv 1 MANNY NEGATI VE negati ve Not Available [facility] ([facility]) [address] [place], [address], 01/22/2016 16:17:20 01/18/20 16 01/22/2016 HSV (1+2) DNA, qual, PCR, unspe cifie d speci men hsv 2 MANNY NEGATI VE negati ve Not Available [facility] ([facility]) [address] [place], [address], 01/22/2016 16:17:20 10/31/19 18 11/01/2017 bacte rial vagin osis + vagin itis panel , vagin al trich vag by MANNY Negati ve negati ve Not Available [facility] ([facility]) [address] [place], [address], 11/03/2017 16:16:41 10/31/19 18 11/02/2017 bacte rial vagin osis + vagin itis panel , vagin al chlamydia trachomatis, MANNY Negati ve negati ve Not Available [facility] ([facility]) [address] [place], [address], 11/03/2017 16:16:41 10/31/19 18 11/02/2017 bacte rial vagin osis + vagin itis panel , vagin al neisseria gonorrhoeae, MANNY Negati ve negati ve Not Available [facility] ([facility]) [address] [place], [address], 11/03/2017 16:16:41 10/31/19 18 11/03/2017 bacte rial vagin osis + vagin itis panel , vagin al atopobium vaginae Low - 0 score Not Available [facility] ([facility]) [address] [place], [address], 11/03/2017 16:16:41 10/31/19 18 11/03/2017 bacte rial vagin osis + vagin itis panel , vagin al bvab 2 Low - 0 score Not Available [facility] ([facility]) [address] [place], [address], 11/03/2017 16:16:41 10/31/19 18 11/03/2017 bacte rial vagin osis + vagin itis panel , vagin al megasphaera 1 Low - 0 score Calcu late total score by vania whitman the 3 indiv idual bacte rial vagin osis (BV) marke r score s toget her. Total score is inter prete d as follo ws: Total score 0-1: Indic ates the absen ce of BV. Total score 2: Indet ermin ate for BV. Addit ional clini grace data shoul d be evalu ated to estab onel a diagn osis. Total score 3-6: Indic ates the prese nce of BV. This test was devel oped and its perfo rmanc e noman cteri stics deter mined by [employer]. It has not been clear ed or appro carlos enrique by the Food and Drug Admin istra tion. The FDA has deter mined that such clear ance or appro silke is not neces deepa. Not Available [facility] ([facility]) [address] [place], [address], 11/03/2017 16:16:41 10/31/19 18 11/03/2017 bacte rial vagin osis + vagin itis panel , vagin al grayson albicans, MANNY Negati ve negati ve Not Available [facility] ([facility]) [address] [place], [address], 11/03/2017 16:16:41 10/31/19 18 11/03/2017 bacte rial vagin osis + vagin itis panel , vagin al grayson glabrata, MANNY Negati ve negati ve This test was devel oped and its perfo rmanc e noman cteri stics deter mined by [employer]. It has not been clear ed or appro carlos enrique by the Food and Drug Admin istra tion. The FDA has deter mined that such clear ance or appro silke is not neces deepa. Not Available [facility] ([facility]) [address] [place], [address], 11/03/2017 16:16:41 10/31/19 18 11/03/2017 HSV (1+2) DNA, qual, PCR, unspe cifie d speci men hsv 1 MANNY Negati ve negati ve Not Available [facility] ([facility]) [address] [place], [address], 11/03/2017 16:16:42 10/31/19 18 11/03/2017 HSV (1+2) DNA, qual, PCR, unspe cifie d speci men hsv 2 MANNY Negati ve negati ve Not Available [facility] ([facility]) [address] [facility], [place], [address], 11/03/2017 16:16:42 10/31/19 18 11/02/2017 pap, IG + HPV, cervi grace HPV aptima Positi ve negati ve abnormal This test detec ts fourt een high- risk HPV types (16/1 8/31/ 33/35 /39/4 5/ 51/52 /56/5 8/59/ 66/68 ) witho ut diffe renti ation . Not Available [facility] ([facility]) [address] [place], [address], 11/04/2017 11:35:57 10/31/19 18 11/04/2017 pap, IG + HPV, cervi grace diagnosis: Commen t abnormal EPITH ELIAL CELL ABNOR MALIT Y. ATYPI GRACE SQUAM OUS CELLS OF UNDET ERMIN ED SIGNI FICAN CE. Not Available [facility] ([facility]) [address] [place], [address], 11/04/2017 11:35:57 10/31/19 18 11/04/2017 pap, IG + HPV, cervi grace specimen adequacy: Commen t Satis facto ry for evalu ation . Endoc ervic al and/o r squam ous metap lasti c cells (endo cervi grace compo nent) are prese nt. Not Available [facility] ([facility]) [address] [facility], [place], [address], 11/04/2017 11:35:57 10/31/19 18 11/04/2017 pap, IG + HPV, cervi grace clinician provided ICD10: Joann jackson Z01.4 19 Not Available [facility] ([facility]) [address] [facility], [place], [address], 11/04/2017 11:35:57 10/31/19 18 11/04/2017 pap, IG + HPV, cervi grace performed by: Joann patel, Cytot echno logis t (ASCP ) Not Available [facility] ([facility]) [address] [facility], [place], [address], 11/04/2017 11:35:57 10/31/19 18 11/04/2017 pap, IG + HPV, cervi grace electronical ly signed by: Joann Parry ace ([facility]) MD Tray, Patho logis t Not Available [facility] ([facility]) [address] [facility], [place], [address], 11/04/2017 11:35:57 10/31/19 18 11/04/2017 pap, IG + HPV, cervi grace . . Not Available [facility] ([facility]) [address] [place], [address], 11/04/2017 11:35:57 10/31/19 18 11/04/2017 pap, IG + HPV, cervi grace pathologist provided ICD10: Joann jackson R87.6 10 Not Available [facility] ([facility]) [address] [place], [address], 11/04/2017 11:35:57 10/31/19 18 11/04/2017 pap, IG + HPV, cervi grace note: Joann jackson The Pap smear is a scree alysha test desyumiko jovanni to aid in the detec tion of brandon ligna nt and malig nant condi tions of the uteri ne cervi x. It is not a diagn ostic proce dure and shoul d not be used as the sole means of detec ting cervi grace cance r. Both false -posi tive and false -nega tive repor ts do occur . Not Available [facility] ([facility]) [address] [facility], [place], [address], 11/04/2017 11:35:57 10/31/19 18 11/04/2017 pap, IG + HPV, cervi grace test methodology: Commen t This liqui d based ThinP rep(R ) pap test was scree jovanni with the use of an image guide marija systanish ortiz. Not Available [facility] ([facility]) [address] [facility], [place], [address], 11/04/2017 11:35:57 Result Notes None recorded. Problems No Known Problems Procedures Surgical History Date Name Laterality Status Provider Name and Address Organization Details Recorded Time 6 IUD Insertion completed Gordon Burgos [facility] 03/17/2016 15:43:19 Other completed Martha Fowler MA ID - SI 10/30/2017 17:05:36 Imaging Results None recorded. Procedure Notes None recorded. Medical Equipment None Reported. Allergies Allergen ID Allergen Name Allergen Category Reaction Reaction Severity Criticality Documentation Date Start Date Code Code System Note Provider Name and Address Organization Details Recorded Time 56028 Substance with sulfonami de structure and antibacte rial mechanism of action (substanc e) medicatio n hives Not available Not available 01/18/2016 12198 8003 SNOMED tanya cruz LIMA Benítez [facility] 6 14:45:20 16329 amoxicill in medicatio n hives Not available Not available 01/18/2016 723 RxNorm tanya cruz LIMA Benítez [facility] SI 6 14:45:36 Medications Name Sig Start Date Stop Date Status Note LastModified by Organization Details LastModified Time Mirena 21 mcg/24 hr (up to 8 years) 52 mg intrauterin e device Take 1 device by intrauter ine route. active Not Available Not Available No t Available clindamycin HCl 300 mg capsule 10/30 completed Not Available Not Available Not Available fluconazole 150 mg tablet 10/30 completed Not Available Not Available Not Available Vitamin tablet Take 1 tablet every day by oral route. 2017 active Not Available Not Available Not Avai lable doxycycline monohydrate 100 mg capsule 10/30 completed Not Available Not Available Not Available cephalexin 500 mg capsule 10/30 completed Not Available Not Available Not Available ketoconazol e 2 % topical cream 10/30 completed Not Available Not Available Not Available ondansetron 4 mg disintegrat ing tablet active Not Available Not Available N ot Available azithromyci n 500 mg tablet active Not Available Not Available Not Available Xulane 150 mcg-35 mcg/24 hr transdermal patch 10/30 completed Not Available Not Available Not Available Vitals Date Recorded Body height Body mass index (BMI) Body weight Systolic blood pressure Diastolic blood pressure Provider Name and Address Organization Details Last Updated DateTime 10/30/2017 167.64 cm 30.5 kg/m2 19937.96 g 114 mm[Hg] 66 mm[Hg] Martha Fowler MA ID - SIF 8 17:02:57 Date Recorded Body mass index (BMI) Body height Body weight Systolic blood pressure Diastolic blood pressure Provider Name and Address Organization Details Last Updated DateTime 01/18/2016 30.5 kg/m2 167.64 cm 17086.95 793 g 116 mm[Hg] 78 mm[Hg] Jasmyn Church MA [facility] SIF 6 14:58:59 Date Recorded Body height Body weight Body mass index (BMI) Systolic blood pressure Diastolic blood pressure Provider Name and Address Organization Details Last Updated DateTime 03/17/2016 167.64 cm 44769.36 556 g 30.3 kg/m2 110 mm[Hg] 72 mm[Hg] Jasmyn Church MA [facility] SI 6 15:00:50 Date Recorded Body height Body weight Body mass index (BMI) Systolic blood pressure Diastolic blood pressure Provider Name and Address Organization Details Last Updated DateTime 04/14/2016 167.64 cm 97988.14 267 g 30.8 kg/m2 108 mm[Hg] 66 mm[Hg] Jasmyn Church MA ID - SI 6 16:10:37 Social History Question Answer Notes LastModified by Organizat ion Details LastModified Time Tobacco Smoking Status Former Smoker Jasmyn DunlapLIMA campbell null, [facility] 01/18/2016 14:52:02 Do You Have An Advance Directive? No Information not available 01/18/2016 Is Blood Transfusion Acceptable In An Emergency? Yes Information not available 01/18/2016 What Is Your Level Of Caffeine Consumption? Occasional Information not available 01/18/2016 How Much Tobacco Do You Chew? None Information not available 01/18/2016 What Type Of Diet Are You Following? REGULAR Information not available 01/18/2016 Education 12 Information no t available 01/18/2016 Live Alone Or With Others? With Others Information not available 01/18/2016 What Was The Date Of Your Most Recent Tobacco Screening? 10/30/2017 Information not available 02/24/2019 How Many Children Do You Have? 0 Information not available 01/18/2016 Performs Monthly Self-breast Exam? Yes Information no t available 01/18/2016 Do You Use Protection During Sex? Always Information not available 01/18/2016 What Is Your Relationship Status? Single Information not available 01/18/2016 Seat Belts Used Routinely Yes Information not available 01/18/2016 Are You Sexually Active? Yes Information not available 01/18/2016 General Stress Level Medium Information not available 01/18/2016 Do You Use Sunscreen Routinely? Yes Information not available 01/18/2016 How Many Years Have You Smoked Tobacco? 1 Information not available 01/18/2016 Sex: Unknown Functional Status Question Answer Note LastModified by Organization D etails LastModified Time What is your level of alcohol consumption? None Information not available 01/18/2016 Are you currently employed? Yes Information not available 01/18/2016 What is your occupation? [employer] Information not available 01/18/2016 What is your exercise level? Moderate Information not available 01/18/2016 Mental Status None recorded. Family History Relationship Description Onset Age of this Age Resolved Age Notes LastModified by Organization Details LastModified Time Maternal Grandmother Carcinoma in situ of breast [email or web address] Not available 2015 17:27:59 Medical History Condition Response Other N High Blood Pressure N Breast Cancer N Thyroid Problems N Kidney or Bladder Problems N GI Problems N Depression N Blood Clots N Lung Disease N Acne N Breast Problem N Eating Disorder N Anemia N Anesthesia Complications N Headaches/Migraines N Anxiety Disorder N Diabetes N Ovarian Cancer N Muscle, Joint, or Bone Problems N Blood Transfusions N Seizures/Epilepsy N Polyps N Infertility N Acid Reflux (GERD) N Cancer N Abuse/Domestic Violence N Asthma N Endometriosis N High Cholesterol N Hepatitis N Liver Disease N Heart Disease N Pre-Eclampsia N Osteoporosis N Gynecological History Statement/Question Response Flow Moderate On BCP's at Conception? N STIs/STDs N HPV Vaccine N Duration of Flow (days) 3 Age at Menarche 15 Current Control Method IUD Frequency of Cycle (Q days) 28 Sexually Active? Y Menses Monthly N Sexual Problems? N LMP Approximate Desired Control Method IUD Obstetrics History GPAL:G 0 P 0 0 0 0 Type Value Multiple Births 0 Full Term 0 Induced 0 Spontaneous 0 Premature 0 Living 0 Ectopics 0 Total 0 Past Encounters Encounter ID Performer Location Encounter Start Date Encounter Closed Date Diagnosis/Indication Diagnosis SNOMED-CT Code Diagnosis ICD10 Code Diagnosis Note [id number] [facility] [address] [place] [address] [id number] 01/18/2016 14:20:37 01/21/2016 12:13:01 Gynecologic examination 23342027 Z01.419 [facility] [id number] Z30.09 [id number] MD Bi Morales (LIBRARY CIRCULATION DEPARTMENT CHIEF) [address] [place] [address] [id number] 03/17/2016 13:45:04 03/17/2016 15:35:46 Uses intrauterine contraception [id number] Z97.5 [id number] MD Bi Morales (LIBRARY CIRCULATION DEPARTMENT CHIEF) [address] [place] [address] [id number] 04/14/2016 15:52:40 04/15/2016 11:44:15 Surveillance of contraception 895613808 Z30.40 [id number] MD Bi Donald (LIBRARY CIRCULATION DEPARTMENT CHIEF) [address] [place] [address] 10/30/2017 16:35:13 10/30/2017 17:24:16 Surveillance of contraception 787923478 Z30.40 IUD threads visualized . Gynecologi c examination 77891746 Z01.419 Age appropriat e counseling done. Venereal d isease screening 989092096 Z11.3 Patient refused blood work. Obese 769402966 E66.9 Counseled About weight loss, diet and excercise. Patient refused acrylic fabricator consult. Cramping pain 989010780 R52 in pelvis. No pain since 1 month as per patient. Advised patient to take motrin. Advised patient to RTC if her pelvic pain gets back and not relived by motrin. Break-thro ugh bleeding [id number] N92.1 Counseled about it. Safe sex counseling done. She say its mild. Health Concerns Section Related Observation LastModified by Organization Detai ls LastModified Time None Recorded Concern Status LastModified by Organization Details LastModified Time None Recorded Advance Directives Directive N: Payers Encounter Date Sequence Insurance Name Policy Number Policy Tyson Covered Member ID Tyson Member ID Guarantor Name 01/18/2016 1 [employer] - DOS PRIOR TO 21 - [facility] [employer] [id number] Erik Ortega [id number] 3 Anna Ortega 03/17/2016 1 [employer] - DOS PRIOR TO 21 - [facility] [employer] [id number] Erik Ortega [id number] 3 Anna Ortega 04/14/2016 1 [employer] - DOS PRIOR TO 21 - [facility] [employer] [facility] [id number] Erik Ortega [id number] 3 Anna Ortega 10/30/2017 1 [employer] - DOS PRIOR TO 21 - [facility] [employer] [facility] [id number] Erik Ortega [id number] 3 Anna Jordan Notes Date Note Type Note Provider Name and Address Organization Details Recorded Time 01/18/2016 text/html Annual GYNReport ed bypatient.Menstrual cycle:Normal menses Urinary symptoms:No hematuria; No incontinence Vulva:No genital lesion Vagina:Normal vaginal discharge Breast:No breast pain; No breast lump; No nipple discharge Current Contraception:Wants to discuss contraceptive options Sexual complaints:No sexual complaints; No pain during intercourse; Normal libido Menopausal Symptoms:No menopausal symptoms; Normal vaginal lubrication Psychological symptoms:No depression; No anxiety; No PMDD Preventive measures:Encourage self breast examination; Encourage regular exercise; Encourage no tobacco use Gordon aly [facility] 01/18/2016 15:33:03 03/17/2016 text/html Patient denies gynecologic complaints, denies irregular menstrual cycles, abnormal discharge, pelvic pain, breast complaints, dysuria, hematuria LIMA Jang [facility] 03/18/2016 15:15:46 04/14/2016 text/html EM is a 20yo fem tiffany s/p Mirena implantation on 03/17/16 who presents for a device check and string trimming. Patient has had some mild cramping since implantation. Started menstrual cycle today 04/14/16. No concerns. Gordon aly [facility] 04/14/2016 17:30:19 10/30/2017 text/html Annual GYNReport ed bypatient.History:n o gynecologic complaints Menstrual cycle:spotting on Mirena Urinary symptoms:No hematuria; No incontinence Vulva:No genital lesion Vagina:Normal vaginal discharge Breast:No breast pain; No breast lump; No nipple discharge Current Contraception:Intra uterine device (iud) Sexual complaints:No sexual complaints; No pain during intercourse; Normal libido Menopausal Symptoms:No menopausal symptoms; Normal vaginal lubrication Psychological symptoms:No depression; No anxiety; No PMDD Preventive measures:Encourage self breast examination; Encourage regular exercise; Encourage no tobacco use; Encourage regular mammograms starting age 40; Followed with Q3 year pap smear and high risk HPV typing; also counseled about calcium intake and advised to start over the counter calcium treatment. Patient say she had Mirena placed 2015. She wanted to check for IUD threads. Patient say she has pelvic cramping off and on since 1 year. Mild to moderate 3-4 /10. She say her last episode was 1 month ago. She did not have any pelvic pain since 1 month. Patient denies any vaginal discharge. Offered WWE. Patient agreed. Ni Hayes MD Attn: Accounting,[address] [facility], [place], [address], [facility] 10/30/2017 17:31:23 OBGyn Episode No OBEpisode recorded.
--- OUTSIDE RECORDS SUMMARY | 2025-01-09 08:59 | XMS_ITS | CONTINUITY OF CARE DOCUMENT ---
Author Name francoise marloellie Address Unknown Organization [facility] Address [address] [place] [address] Phone [phone] Care Team Providers Care Assembler Ping Pong Table Name Role Phone Pedro ELIAS, Julius Unavailable DENILSON ELIAS, JOSE ANTONIO Unavailable [phone] DENILSON ELIAS, JOSE ANTONIO Unavailable INSURANCE PROVIDERS Payer name Policy type / Coverage type [place] red republican ID [employer] Blue [facility] [id number]
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
[2025-01-09 09:34] LABS: BEDSIDEPREGUCG Negative (Negative)
[2025-01-09 09:40] LABS: Basophils Percent Auto 0.4 % (0.2-1.2); Eosinophils Absolute Auto 0.1 K/mm3 (0-0.3); Eosinophils Percent Auto 0.5 % (0-4.4); Hemoglobin 14.3 g/dL (12.0-15.0); Immature Granulocyte Absolute 0.04 K/mm3 (0.00-0.031); Immature Granulocyte Percent A 0.4 % (0-0.5); Lymphocytes Absolute Auto 2.14 K/mm3 (0.9-3.2); Lymphocytes Percent Auto 20.6 % (18.3-44.2); Mean Corpuscular HGB Conc 31.8 g/dl (32-36); Mean Corpuscular Volume 91.3 fl (80-100); Mean Platelet Volume 9.2 fl (7.4-10.4); Monocytes Absolute Auto 0.6 K/mm3 (0.1-0.6); Monocytes Percent Auto 5.5 % (2.6-8.5); Neutrophils Absolute Auto 7.5 K/mm3 (1.3-6.7); Neutrophils Percent Auto 72.6 % (45.5-73.1); Platelet Count Result 363 k/mm3 (150-375); Red Blood Count 4.93 M/mm3 (4.2-5.4); Red Cell Distribution Width 13.1 % (11.5-14.5); White Blood Count 10.4 K/mm3 (4.5-10.0)
[2025-01-09 09:46] LABS: Add Urine Microscopic? YES; Appearance Urine Clear (Clear); Bacteria Urine Rare /hpf; Bilirubin Urine Negative (Negative); Blood Urine Trace (Negative); Color Urine Yellow (Yellow); Glucose Urine UA Negative (Negative); Ketones Urine Negative (Negative); Leukocyte Esterase Ur Trace LEU/UL (Negative); Nitrate Urine Negative (Negative); Non Pathogenic Casts 0-2; Protein Urine Negative (Negative); RBC Urine 0-2 /hpf (0-2); Specific Grav Ur 1.021 (1.001-1.035); Squamous Epithelial Cell Urine Occasional /hpf (Few); Urobilinogen Urine 0.2 mg/dL (<2.0); WBC Urine 0-5 /hpf (0-3); pH Urine 5.5 (5.0-9.0)
[2025-01-09 09:52] LABS: Estimated CRCL calculation 98 ml/min; Estimated Glomerular Filt Rate > 60
[2025-01-09 09:58] LABS: Alanine Aminotransferase 29 U/L (6-35); Albumin Level 4.7 g/dL (3.5-5.1); Alkaline Phosphatase 62 U/L (38-126); Anion Gap 10 mmol/L (4-12); Aspartate Amino Transferase 29 U/L (14-36); Bilirubin,Total 0.4 mg/dL (0.2-1.3); Blood Urea Nitrogen 14 mg/dL (7-17); Calcium 9.2 mg/dL (8.4-10.2); Carbon Dioxide 24 mmol/L (22-30); Chloride 106 mmol/L (98-107); Estimated CRCL calculation 107 ml/min; Estimated Glomerular Filt Rate > 60; Glucose 99 mg/dL (65-110); Potassium 3.8 mmol/L (3.4-5.0); Sodium 140 mmol/L (137-145); Total Protein 7.9 g/dL (6.3-8.2)
--- OUTSIDE RECORDS SUMMARY | 2025-01-09 10:27 | XMS_ITS | CONTINUITY OF CARE DOCUMENT ---
Author Name francoise marloellie Address Unknown Organization [facility] Address [address] [place] [address] Phone [phone] Care Team Providers Care Collar Runner Name Role Phone Pedro ELIAS, Julius Unavailable [phone] DENILSON ELIAS, JOSE ANTONIO Unavailable DENILSON ELIAS, JOSE ANTONIO Unavailable INSURANCE PROVIDERS Payer name Policy type / Coverage type [place] red constitution party ID [facility] Blue [facility] [id number]
--- OUTSIDE RECORDS SUMMARY | 2025-01-09 10:27 | XMS_ITS | Clinical Summary ---
Author Organization [facility] Address [address] [place] [address] Phone Care Team Providers Care Sales Review Clerk Name Role Phone Alley Pickard MD Primary Care Provider [phone] Allergies Active Allergy Reactions Criticality Noted Date [...] Comments Blood Pressure 120/68 07/25/2024 5:26 PM PIERCING ARTIST Pulse 116 07/25/2024 5:26 PM PIERCING ARTIST Temperature 36.6 C (97.8 F) 07/25/2024 5:26 PM PIERCING ARTIST Respiratory Rate 24 07/25/2024 5:26 PM PIERCING ARTIST Oxygen Saturation 96% 07/25/2024 5:26 PM PIERCING ARTIST Inhaled Oxygen Concentration - - Weight - [...] patient's age to complete this topic Insurance [facility] Care Teams Sales Review Clerk Relationship Specialty Start Date End Date Alley Pickard MD [address] [facility] [address] [place] [address] PCP - General Family Medicine 07/25/24
[2025-01-09 10:35] VITALS: BP 128/88; PULSE 88; RESP 18; O2SAT 100
== END 2025-01-09 10:36 | disposition home or self-care (01) ==
PROVIDERS: Emergency Provider Registered Nurse; PCP Family Medicine
DX: S99.912A Unspecified injury of left ankle, initial encounter (principal); S20.311A Abrasion of right front wall of thorax, initial encounter; S30.811A Abrasion of abdominal wall, initial encounter; V49.49XA Driver injured in collision with other motor vehicles in traffic accident, initial encounter; T83.32XA Displacement of intrauterine contraceptive device, initial encounter; Y84.8 Other medical procedures as the cause of abnormal reaction of the patient, or of later complication, without mention of misadventure at the time of the procedure
CPT/HCPCS: 36415; 71260; 73610; 74177; 80053; 81001; 81025; 85025; 99284; Q9967

== ENCOUNTER 2025-01-30 14:09 | Outpatient (CLI) | payer BC, SELFPAY ==
--- NOTE | ~2025-01-30 | XR_ITS ---
Left ankle Technique: AP and lateral views were obtained. Clinical History: Pain Findings: No acute fracture or dislocation is seen. Osseous alignment is anatomic. Ankle mortise and other visualized joint spaces are preserved. Soft tissues are otherwise unremarkable. Impression: Unremarkable left ankle. Reviewed, dictated and finalized at location . Impression: Unremarkable left ankle.
== END 2025-01-30 14:10 | disposition home or self-care (01) ==
PROVIDERS: PCP Family Medicine; Visit Provider Family Medicine
DX: M25.572 Pain in left ankle and joints of left foot (principal)
CPT/HCPCS: 73600